=== PATIENT | male | born 1960 | race African-American/Black ===

== ENCOUNTER 2021-05-07 17:32 | Inpatient (IN) ==
[2021-05-07] MEDS ORDERED: ONDANSETRON 4 MG/2 ML VIAL IV STA (18:18)
[2021-05-07] MEDS ORDERED: HYDROmorphone 2 MG/1 ML VIAL IV STA (18:18)
[2021-05-07 18:53] LABS: Albumin 3.1 G/DL (3.4-5.0); Bilirubin,Total 1.1 MG/DL (0.20-1.00); Calcium 8.9 MG/DL (8.5-10.1); Osmolality,Calculated 264.5 MOS/KG (273-304); Potassium 3.4 MMOL/L (3.5-5.1); Total Protein 8.2 G/DL (6.4-8.2)
[2021-05-07] MEDS ORDERED: traZODone 50 MG TABLET PO PRN (20:09)
[2021-05-07] MEDS ORDERED: MORPHINE 2 MG/1 ML SYRINGE IV PRN (20:09)
[2021-05-07 20:54] LABS: Hematocrit 31.8 VOL% (42.0-52.0); Immature Granulocytes % 0.6 %; Immature Granulocytes Absolute 0.05 #; Lymphocytes # 1.2 10*3/uL (1.4-4.0); Lymphocytes % 14.5 % (21.2-54.2); Mean Corpuscular HGB Conc 34.6 GM/DL (32-36); Mean Corpuscular Volume 93.5 FL (87-102); Mean Platelet Volume 11.7 FL (9.6-12.0); Monocytes % 10.5 % (1.7-12.7); Neutrophils % 74.4 % (38.7-73.9); Platelet Count 187 T/CUMM (130-400); Red Cell Distribution Width 13.5 % (9.3-17.3); White Blood Count 8.6 T/CUMM (4-12)
[2021-05-07] MEDS ORDERED: MAGNESIUM SULF RIDER 2 GM/50 ML PREMIX IV PRN (20:57)
[2021-05-07] MEDS ORDERED: POTASSIUM CHLORIDE RIDER 10 MEQ/100 ML PREMIX IV PRN (20:57)
[2021-05-07] MEDS ORDERED: POTASSIUM CHLORIDE 20 MEQ TABLET PO PRN (20:57)
[2021-05-07] MEDS ORDERED: MAGNESIUM SULF RIDER 4 GM/100 ML PREMIX IV PRN (20:57)
[2021-05-07] MEDS ORDERED: LORazepam 2 MG/1 ML VIAL IV PRN (21:03)
[2021-05-07] MEDS ORDERED: THIAMINE INJ 100 MG, FOLIC ACID INJ 1 MG, MULTIVITAMIN INJ 10 ML in SODIUM CHLORIDE 0.9... IV SCH (21:30)
[2021-05-07] MEDS: SODIUM CHLORIDE 0.9% 1,000 ML IV SCH (21:36)
[2021-05-08 05:54] LABS: Hematocrit 29.5 VOL% (42.0-52.0); Hemoglobin 10.4 GM/DL (14.0-18.0); Immature Granulocytes % 0.6 %; Immature Granulocytes Absolute 0.04 #; Lymphocytes # 1.4 10*3/uL (1.4-4.0); Lymphocytes % 21.8 % (21.2-54.2); Mean Corpuscular HGB Conc 35.3 GM/DL (32-36); Mean Corpuscular Volume 93.9 FL (87-102); Mean Platelet Volume 10.6 FL (9.6-12.0); Monocytes % 12.6 % (1.7-12.7); Platelet Count 183 T/CUMM (130-400); Red Blood Count 3.14 MC/CUMM (3.8-5.5); Red Cell Distribution Width 13.1 % (9.3-17.3); White Blood Count 6.2 T/CUMM (4-12)
[2021-05-08 06:32] LABS: Albumin 2.8 G/DL (3.4-5.0); Bilirubin,Total 1.1 MG/DL (0.20-1.00); Calcium 8.9 MG/DL (8.5-10.1); Osmolality,Calculated 268.1 MOS/KG (273-304); Potassium 3.3 MMOL/L (3.5-5.1); Total Protein 7.1 G/DL (6.4-8.2)
[2021-05-08] MEDS: SODIUM CHLORIDE 0.9% 1,000 ML IV SCH (07:14)
[2021-05-08] MEDS ORDERED: POTASSIUM CHLORIDE 20 MEQ TABLET PO ONE (07:17)
[2021-05-08] MEDS ORDERED: propofoL 200 MG/20 ML VIAL IV ONE (07:26)
[2021-05-08] MEDS ORDERED: LIDOCAINE 2% 5 ML VIAL ONE (07:26)
[2021-05-08] MEDS ORDERED: fentaNYL 100 MCG/2 ML VIAL ONE (07:26)
[2021-05-08] MEDS ORDERED: MIDAZOLAM 2 MG/2 ML VIAL ONE (07:26)
[2021-05-08] MEDS ORDERED: ROCURONIUM 50 MG/5 ML VIAL IV ONE (07:26)
[2021-05-08] MEDS ORDERED: LIDOCAINE 2% TOP JELLY 20 ML VIAL INTRAURETH ONE ×2 (07:40→08:50)
[2021-05-08] MEDS: NICOTINE 21 MG/24 HR PATCH TRANSDERM SCH (08:14)
[2021-05-08] MEDS: DOCUSATE SODIUM 100 MG CAPSULE PO SCH ×2 (08:14→21:02)
[2021-05-08] MEDS: PANTOPRAZOLE 40 MG TABLET PO SCH (08:14)
[2021-05-08] MEDS ORDERED: ONDANSETRON 4 MG/2 ML VIAL ONE (08:53)
[2021-05-08] MEDS ORDERED: LACTATED RINGERS 1,000 ML IV SCH (09:00)
[2021-05-08] MEDS ORDERED: PHENYLEPHRINE 1 MG/10 ML SYRINGE IV ONE (09:38)
[2021-05-08] MEDS ORDERED: SODIUM CHLORIDE 0.9% 100 ML IV ONE (09:38)
[2021-05-08] MEDS ORDERED: NEOSTIGMINE 10 MG/10 ML VIAL ONE (09:38)
[2021-05-08] MEDS ORDERED: GLYCOPYRROLATE 0.4 MG/2 ML VIAL ONE (09:38)
[2021-05-08] MEDS ORDERED: DEXAMETHASONE 4 MG/1 ML VIAL ONE (09:38)
[2021-05-08] MEDS ORDERED: SEVOFLURANE 1 UNIT/15 MINUTE INH ONE (09:40)
[2021-05-08] MEDS ORDERED: BACITRACIN OINT 0.9 GM PACK TOP ONE (09:41)
[2021-05-08] MEDS ORDERED: MORPHINE 2 MG/1 ML SYRINGE IV PRN (09:57)
[2021-05-08] MEDS ORDERED: ALBUMIN 5% 12.5 GM/250 ML VIAL IV ONE (10:12)
[2021-05-08 10:39] LABS: Bilirubin,Urine Negative (Negative); Blood, Urine Negative (Negative); Glucose,Urine (UA) 50 mg/dL (Negative); Hyaline Casts,Urine 1 /LPF (0-3); Ketones,Urine Negative (Negative); Mucus,Urine Occasional /LPF (Occasional); Nitrite,Urine Negative (Negative); Protein,Urine Negative; RBC,Urine 1 /HPF (0-4); Squamous Epithelial Cell,Urine Occasional /HPF (0-10); Uric Acid Crystals,Urine Occasional /HPF (<1); Urine Appearance CLEAR (Clear); Urine Color Yellow (Yellow); Urine Specific Gravity 1.019 (1.001-1.035)
[2021-05-08] MEDS ORDERED: LACTATED RINGERS 1,000 ML IV ONE (10:49)
[2021-05-08] MEDS: MULTIVITAMIN (BEROCCA) TABLET PO SCH (12:15)
[2021-05-08] MEDS: LACTATED RINGERS 1,000 ML IV SCH ×2 (12:15→23:20)
[2021-05-08] MEDS: THIAMINE 100 MG TABLET PO SCH (12:15)
[2021-05-08] MEDS ORDERED: hydrALAZINE 20 MG/1 ML VIAL IV PRN (12:23)
[2021-05-08] MEDS: LORazepam 1 MG TABLET PO SCH ×2 (14:04→21:01)
[2021-05-08] MEDS: FOLIC ACID 1 MG TABLET PO SCH (21:02)
[2021-05-09] MEDS: FONDAPARINUX 2.5 MG/0.5 ML SYRINGE SUBCUT SCH (05:45)
[2021-05-09 06:59] LABS: Hematocrit 23.8 VOL% (42.0-52.0); Hemoglobin 8.3 GM/DL (14.0-18.0); Immature Granulocytes % 0.2 %; Immature Granulocytes Absolute 0.01 #; Lymphocytes # 1.2 10*3/uL (1.4-4.0); Lymphocytes % 19.6 % (21.2-54.2); Mean Corpuscular HGB Conc 34.9 GM/DL (32-36); Mean Corpuscular Volume 95.6 FL (87-102); Mean Platelet Volume 9.8 FL (9.6-12.0); Monocytes % 12.3 % (1.7-12.7); Neutrophils % 67.9 % (38.7-73.9); Platelet Count 205 T/CUMM (130-400); Red Blood Count 2.49 MC/CUMM (3.8-5.5); Red Cell Distribution Width 13.2 % (9.3-17.3); White Blood Count 6.3 T/CUMM (4-12)
[2021-05-09 07:14] LABS: Calcium 8.5 MG/DL (8.5-10.1); Osmolality,Calculated 267.5 MOS/KG (273-304); Potassium 4.4 MMOL/L (3.5-5.1)
[2021-05-09 07:18] LABS: Risk Ratio 2.11; VLDL Cholesterol 14.2 MG/DL
[2021-05-09 07:51] LABS: Anisocytosis 2+; Band Neutrophils 3 % (0-10); Basophilic Stippling Slight; Lymphocytes 19 % (20-55); Platelet Estimate Normal; Segmented Neutrophils 68 % (50-85); Total Cells Counted 100
[2021-05-09 07:52] LABS: Hypochromasia 1+; Macrocytosis Slight
[2021-05-09] MEDS: PANTOPRAZOLE 40 MG TABLET PO SCH (08:13)
[2021-05-09] MEDS: DOCUSATE SODIUM 100 MG CAPSULE PO SCH ×2 (08:13→20:11)
[2021-05-09] MEDS: LORazepam 1 MG TABLET PO SCH ×3 (08:14→20:11)
[2021-05-09] MEDS: MULTIVITAMIN (BEROCCA) TABLET PO SCH (08:14)
[2021-05-09] MEDS: NICOTINE 21 MG/24 HR PATCH TRANSDERM SCH (08:14)
[2021-05-09] MEDS: THIAMINE 100 MG TABLET PO SCH (08:14)
[2021-05-09] MEDS: amLODIPine 5 MG TABLET PO SCH (10:45)
[2021-05-09] MEDS: MAGNESIUM HYDROXIDE SUSP 30 ML UDCUP PO PRN (17:30)
[2021-05-09] MEDS: FOLIC ACID 1 MG TABLET PO SCH (20:11)
[2021-05-09] MEDS: LACTATED RINGERS 1,000 ML IV SCH (20:17)
[2021-05-10] MEDS: FONDAPARINUX 2.5 MG/0.5 ML SYRINGE SUBCUT SCH (05:28)
[2021-05-10] MEDS: LACTATED RINGERS 1,000 ML IV SCH ×3 (05:32→14:46)
[2021-05-10 06:29] LABS: Eosinophils % 0.2 % (0.00-10.9); Hematocrit 22.6 VOL% (42.0-52.0); Hemoglobin 7.6 GM/DL (14.0-18.0); Immature Granulocytes % 0.5 %; Immature Granulocytes Absolute 0.03 #; Lymphocytes # 1.2 10*3/uL (1.4-4.0); Lymphocytes % 18.9 % (21.2-54.2); Mean Corpuscular HGB Conc 33.6 GM/DL (32-36); Mean Platelet Volume 9.2 FL (9.6-12.0); Monocytes % 13.2 % (1.7-12.7); Neutrophils % 67.2 % (38.7-73.9); Platelet Count 230 T/CUMM (130-400); Red Blood Count 2.38 MC/CUMM (3.8-5.5); Red Cell Distribution Width 13.3 % (9.3-17.3); White Blood Count 6.3 T/CUMM (4-12)
[2021-05-10 07:25] LABS: Lymphocytes 25 % (20-55); Segmented Neutrophils 67 % (50-85); Total Cells Counted 100
[2021-05-10 07:26] LABS: Anisocytosis 1+; Hypochromasia 2+; Microcytosis 1+; Platelet Estimate Normal
[2021-05-10] MEDS: amLODIPine 5 MG TABLET PO SCH (08:43)
[2021-05-10] MEDS: NICOTINE 21 MG/24 HR PATCH TRANSDERM SCH (08:43)
[2021-05-10] MEDS: DOCUSATE SODIUM 100 MG CAPSULE PO SCH ×2 (08:43→20:06)
[2021-05-10] MEDS: THIAMINE 100 MG TABLET PO SCH (08:43)
[2021-05-10] MEDS: PANTOPRAZOLE 40 MG TABLET PO SCH (08:43)
[2021-05-10] MEDS: MULTIVITAMIN (BEROCCA) TABLET PO SCH (08:43)
[2021-05-10] MEDS: LORazepam 1 MG TABLET PO SCH ×2 (09:29→20:06)
[2021-05-10] MEDS: FOLIC ACID 1 MG TABLET PO SCH (20:06)
[2021-05-11 03:51] LABS: Eosinophils # 0.1 10*3/uL (0.0-0.87); Eosinophils % 0.7 % (0.00-10.9); Hematocrit 22.3 VOL% (42.0-52.0); Hemoglobin 7.5 GM/DL (14.0-18.0); Immature Granulocytes % 0.4 %; Immature Granulocytes Absolute 0.03 #; Lymphocytes # 1.2 10*3/uL (1.4-4.0); Lymphocytes % 17.3 % (21.2-54.2); Mean Corpuscular HGB Conc 33.6 GM/DL (32-36); Mean Corpuscular Volume 96.5 FL (87-102); Monocytes % 14.2 % (1.7-12.7); Neutrophils % 67.4 % (38.7-73.9); Platelet Count 269 T/CUMM (130-400); Red Blood Count 2.31 MC/CUMM (3.8-5.5); Red Cell Distribution Width 13.1 % (9.3-17.3); White Blood Count 6.7 T/CUMM (4-12)
[2021-05-11 04:15] LABS: Eosinophils 1 % (0-10); Hypochromasia 1+; Lymphocytes 18 % (20-55); Microcytosis 1+; Platelet Estimate Adequate; Segmented Neutrophils 71 % (50-85); Total Cells Counted 100
[2021-05-11] MEDS: FONDAPARINUX 2.5 MG/0.5 ML SYRINGE SUBCUT SCH (05:34)
[2021-05-11] MEDS: LACTATED RINGERS 1,000 ML IV SCH (05:35)
[2021-05-11] MEDS: amLODIPine 5 MG TABLET PO SCH (08:21)
[2021-05-11] MEDS: PANTOPRAZOLE 40 MG TABLET PO SCH (08:21)
[2021-05-11] MEDS: NICOTINE 21 MG/24 HR PATCH TRANSDERM SCH (08:21)
[2021-05-11] MEDS: MULTIVITAMIN (BEROCCA) TABLET PO SCH (08:21)
[2021-05-11] MEDS: DOCUSATE SODIUM 100 MG CAPSULE PO SCH ×2 (08:22→20:44)
[2021-05-11] MEDS ORDERED: LORazepam 1 MG TABLET PO ONE (09:00)
[2021-05-12] MEDS: FONDAPARINUX 2.5 MG/0.5 ML SYRINGE SUBCUT SCH (05:53)
[2021-05-12] MEDS: NICOTINE 21 MG/24 HR PATCH TRANSDERM SCH (08:56)
[2021-05-12] MEDS: PANTOPRAZOLE 40 MG TABLET PO SCH (08:57)
[2021-05-12] MEDS: DOCUSATE SODIUM 100 MG CAPSULE PO SCH (08:58)
[2021-05-12] MEDS: amLODIPine 5 MG TABLET PO SCH (08:58)
[2021-05-12] MEDS: MULTIVITAMIN (BEROCCA) TABLET PO SCH (08:58)
[2021-05-12] MEDS: MAGNESIUM HYDROXIDE SUSP 30 ML UDCUP PO PRN (10:58)
[2021-05-12 12:23] VITALS: BP 162/81
== END 2021-05-12 15:13 | disposition swing bed (61) | DRG 481 ==
LOC: N.ED 17:32 → N.EDINP 20:09 → N.3E 20:24
PROVIDERS: ADMIT Orthopaedic Surgery; ATTEND Orthopaedic Surgery